=== PATIENT | female | born 1990 | race Caucasian/White ===

== ENCOUNTER 2017-08-17 12:38 | Inpatient (IN) | payer OTHER ==
[2017-08-17 13:15] VITALS: BMI 22.6
--- NOTE | 2017-08-17 18:24 | HP ---
COWS - Scale Resting Pulse: 0= OR 80 or Below Sweatin=Flushed/Facial Moisture Restless Observation: 1= Difficult to Sit Still Pupil Size: 1= Pupils >than Normal Bone or Joint Aches: 1= Mild Discomfort Runny Nose/ Eye Tearin= Runny Nose/Eyes GI Upset > 30mins: 2= Nausea/Diarrhea Tremor Observation: 1= Tremor [place], Not Seen Yawning Observation: 2= >3x During Session Anxiety or Irritability: 2=Irritable/Anxious Goose Flesh Skin: 3=Piloerection COWS Score: 17 Admission [facility] Chief Complaint: opioid withdrawal symptoms Allergies/Adverse Reactions: Allergies Allergy/AdvReac Type Severity Reaction Status Date / Time No Known Allergies Allergy Verified 08/17/17 16:38 History of Present Illness: 26 yo female with 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 PMHX: Hep C, bipolar, schizophrenia, depression and anxiety, Denies suicidal ideation . Currently denies auditory/ visual hallucinations, reports when she uses cocaine has auditory and visual hallucinations. Denies hx of suicide attempts. Denies hx of seizures or blackouts. Denies any period of sobriety. Exam Limitations: No Limitations - Ebola screening Have you traveled outside of the country in the last 21 days: No Have you had contact with anyone from an Ebola affected area: No Have you been sick,other than usual withdrawal symptoms: No Do you have a fever: No - Review of Systems Constitutional: Chills, Diaphoresis, Loss of Appetite, Changes in sleep (no sleep x 5 days), Unintentional Wgt. Loss (20 lbs x 1 year) EENT: reports: Nose Congestion Respiratory: reports: No Symptoms reported Cardiac: reports: No Symptoms Reported GI: reports: No Symptoms Reported, Diarrhea, Nausea, Vomiting, Abdominal cramping : reports: No Symptoms Reported Musculoskeletal: reports: Back Pain, Joint Pain, Other (foot pain bilateral, left hand swelling denies any recent trauma) Integumentary: reports: Other (left hand swelling) Neuro: reports: Headache (09/15) Endocrine: reports: No Symptoms Reported Hematology: reports: No Symptoms Reported Psychiatric: reports: Judgement Intact, Orientated x3, Depressed Other Systems: Reviewed and Negative Patient History - Patient Medical History Hx Anemia: Yes Hx Asthma: No Hx Chronic Obstructive Pulmonary Disease (COPD): No Hx Cancer: No Hx Cardiac Disorders: No Hx Congestive Heart Failure: No Hx Hypertension: No Hx Hypercholesterolemia: No Hx Pacemaker: No HX Cerebrovascular Accident: No Hx Seizures: No Hx Dementia: No Hx Diabetes: No Hx Gastrointestinal Disorders: No Hx Liver Disease: Yes (Hep C) Hx Genitourinary Disorders: No Hx Sexually Transmitted Disorders: No Hx Renal Disease (ESRD): No Hx Thyroid Disease: No Hx Human Immunodeficiency Virus (HIV): No (last tested on week ago ) Hx Hepatitis C: Yes (no treatment ) Hx Depression: Yes Hx Suicide Attempt: No Hx Bipolar Disorder: Yes Hx Schizophrenia: Yes - Patient Surgical History Past Surgical History: No Hx Neurologic Surgery: No Hx Cataract Extraction: No Hx Cardiac Surgery: No Hx Lung Surgery: No Hx Breast Surgery: No Hx Breast Biopsy: No Hx Abdominal Surgery: No Hx Appendectomy: No Hx Cholecystectomy: No Hx Genitourinary Surgery: No Hx Section: No Hx Orthopedic Surgery: No Anesthesia Reaction: No - PPD History Previous Implant?: Yes Documented Results: Negative w/o proof Implanted On Prior R Admission?: No PPD to be Administered?: Yes - Reproductive History Patient is a Female of Child Bearing Age (11 -55 yrs old): Yes Last Menstrual Period: 11/17/16 (hx irregular menses ) Patient : No - Smoking Cessation Smoking history: Current every day smoker Have you smoked in the past 12 months: Yes Aproximately how many cigarettes per day: 7 Hx Chewing Tobacco Use: No Initiated information on smoking cessation: Yes 'Breaking Loose' booklet given: 08/17/17 - Substance & Tx. History Hx Alcohol Use: Yes Hx Substance Use: Yes Substance Use Type: Cocaine, Heroin Hx Substance Use Treatment: No - Substances Abused Heroin Route: Injection Frequency: Daily Amount used: 20bags Age of first use: 25 Date of Last Use: 08/16/17 Cocaine Route: Injection Frequency: Daily Amount used: 1gm Age of first use: 25 Date of Last Use: 08/16/17 Family Disease History - Family Disease History Family History: Unable to Obtain Admission Physical Exam BHS - Vital Signs Vital Signs: Vital Signs - 24 hr 08/17/17 13:09 Temperature 97.2 F L Pulse Rate 80 Respiratory 20 Rate Blood Pressure 113/61 - Physical General Appearance: Yes: Disheveled, Moderate Distress, Thin, Sweating, Anxious HEENTM: Yes: EOMI, Hearing grossly Normal, Normal ENT Inspection, Normocephalic , Normal Voice, JIGAR, Pharynx Normal, Tm's normal, Rhinorrhea Respiratory: Yes: Chest Non-Tender, Lungs Clear, Normal Breath Sounds, No Respiratory Distress, No Accessory Muscle Use Neck: Yes: No masses,lesions,Nodules, Trachea in good position Breast: Yes: Breast Exam Deferred Cardiology: Yes: Regular Rhythm, Regular Rate Abdominal: Yes: Normal Bowel Sounds, Non Tender, Flat, Soft Genitourinary: Yes: Within Normal Limits Back: Yes: Normal Inspection Musculoskeletal: Yes: full range of Motion, Gait Steady, Pelvis Stable, Back pain Extremities: Yes: Normal Capillary Refill, Normal Inspection, Normal Range of Motion, Non-Tender 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, Fully Oriented, Alert, Motor Strength 5/5 Integumentary: Yes: Warm, Erythema (left hand), Diaphoresis, Track [place] (left hand ( +cellulitis) and forearms, neck (R)), Other (left hand swelling) Lymphatic: Yes: Within Normal Limits - Diagnostic (1) Cocaine dependence Current Visit: Yes Status: Acute Qualifiers: Substance use status: uncomplicated Qualified Code(s): F14.20 - Cocaine dependence, uncomplicated (2) Opioid dependence with withdrawal Current Visit: Yes Status: Acute (3) IV drug user Current Visit: Yes Status: Acute (4) Cellulitis of hand, left Current Visit: Yes Status: Acute (5) Weight decrease Current Visit: Yes Status: Acute (6) Anemia Current Visit: Yes Status: Chronic Qualifiers: Anemia type: unspecified type Qualified Code(s): D64.9 - Anemia, unspecified (7) Psychiatric disorder Current Visit: Yes Status: Suspected (8) Hepatitis C Current Visit: Yes Status: Chronic Qualifiers: Viral hepatitis chronicity: unspecified Hepatic coma status: without hepatic coma Qualified Code(s): B19.20 - Unspecified viral hepatitis C without hepatic coma Cleared for Admission S - Detox or Rehab [facility] Level of Care: Medically Managed Detox Regimen/Protocol: Methadone [facility] Breath Alcohol Content Breath Alcohol Content: 0 Urine Pregancy Test - Result Urine Test Results: Negative- NO Line Present Urine Drug Screen - Results Drug Screen Negative: No Urine Drug Screen Results: THC-Marijuana, JORDAN-Cocaine, OPI-Opiates, OXY- Oxycodone
[2017-08-17] MEDS ORDERED: IBUPROFEN 400 MG TABLET (FP) PO PRN (18:43)
[2017-08-17] MEDS ORDERED: METHADONE HCL 10 MG TABLET (FOR DETOX USE ONLY) PO ONE ×2 (18:43→23:00)
[2017-08-17] MEDS ORDERED: MENTHOL/PHENOL 1 EACH UD MM PRN (18:43)
[2017-08-17] MEDS ORDERED: MAGNESIUM CITRATE 300 ML BOTTLE PO PRN (18:43)
[2017-08-17] MEDS ORDERED: LOPERAMIDE HCL 2 MG CAPSULE PO PRN (18:43)
[2017-08-17] MEDS ORDERED: ACETAMINOPHEN 325 MG TABLET (FP) PO PRN (18:43)
[2017-08-17] MEDS ORDERED: MAGNESIUM HYDROX 2400MG/30ML ORAL SUSPENSION 30 ML CUP PO PRN (18:43)
[2017-08-17] MEDS ORDERED: MAG HYDROX/AL HYDROX/SIMETH 30 ML UNIT-DOSE CUP PO PRN (18:43)
[2017-08-17] MEDS ORDERED: NICOTINE POLACRILEX 2 MG GUM BC PRN (18:43)
[2017-08-17] MEDS ORDERED: hydrOXYzine PAMOATE 50 MG CAPSULE (FP) PO PRN (18:43)
[2017-08-17] MEDS ORDERED: guaiFENesin/D-METHORPHAN HB 10 ML UNIT-DOSE CUPS PO PRN (18:43)
[2017-08-17] MEDS ORDERED: P-EPHED 60MG/TRIPROLIDI 2.5MG TABLET PO PRN (18:43)
[2017-08-17] MEDS: diazePAM 5 MG TABLET PO PRN (20:35)
[2017-08-17] MEDS: CEPHALEXIN MONOHYDRATE 500 MG CAPSULE (UD) PO SCH ×2 (20:36→23:19)
[2017-08-17] MEDS ORDERED: MELATONIN 5 MG TABLETS PO PRN (22:00)
[2017-08-17] MEDS: THIAMINE HCL 100 MG TABLET (FP) PO SCH (23:19)
[2017-08-17] MEDS: BACITRACIN 15 GM TUBE TOPICAL OINTMENT TP SCH (23:22)
[2017-08-18 02:43] LABS: URINE APPEARANCE SLCLOUDY; URINE BILIRUBIN NEGATIVE (<2.0 mg/dL); URINE COLOR YELLOW; URINE GLUCOSE (UA) NEGATIVE (NEGATIVE); URINE KETONE NEGATIVE (NEGATIVE); URINE LEUK ESTERASE NEGATIVE (NEGATIVE); URINE NITRITE NEGATIVE (NEGATIVE); URINE PROTEIN NEGATIVE (NEGATIVE); URINE UROBILINOGEN 4.0 E.U/dl mg/dL (0.2-1.0)
[2017-08-18] MEDS: CEPHALEXIN MONOHYDRATE 500 MG CAPSULE (UD) PO SCH ×4 (06:56→23:01)
--- NOTE | 2017-08-18 08:59 | EKG ---
Test Reason : Blood Pressure : / mmHG Vent. Rate : 086 BPM Atrial Rate : 086 BPM P-R Int : 112 ms QRS Dur : 068 ms QT Int : 364 ms P-R-T Axes : 052 046 045 degrees QTc Int : 435 ms NORMAL SINUS RHYTHM NORMAL ECG NO PREVIOUS ECGS AVAILABLE Confirmed by MATTY COCHRAN MD ([id number]) on 08/18/2017 8:58:53 AM Referred By: Confirmed By:MATTY COCHRAN MD
[2017-08-18] MEDS ORDERED: BACITRACIN 0.9 GM PACKET ONE (09:50)
[2017-08-18] MEDS ORDERED: METHADONE HCL 10 MG TABLET (FOR DETOX USE ONLY) PO ONE (10:00)
--- NOTE | 2017-08-18 10:17 | PN ---
[facility] CIWA - CIWA Score Nausea/Vomitin Muscle Tremors: 3 Anxiety: 3 Agitation: 2 Paroxysmal Sweats: 1-Minimal Palms Moist Orientation: 0-Oriented Tacttile Disturbances: 1-Very Mild Itch/Numbness Auditory Disturbances: 1-Very Mild Visual Disturbances: 0-None Headache: 2-Mild CIWA-Ar Total Score: 16 [facility]HS COWS - Scale Resting Pulse: 0= ID 80 or Below Sweatin= Chills/Flushing Restless Observation: 3= Extraneous Movement Pupil Size: 1= Pupils >than Normal Bone or Joint Aches: 2= Severe Diffuse Aches Runny Nose/ Eye Tearin= Runny Nose/Eyes GI Upset > 30mins: 2= Nausea/Diarrhea Tremor Observation of Outstretched Hands: 2= Slight Tremor Visible Yawning Observation: 1= 1-2x During Session Anxiety or Irritability: 2=Irritable/Anxious Goose Flesh Skin: 0=Smooth Skin COWS Score: 16 [facility] Progress Note (SOAP) Subjective: alert,irritable,anxious,interrupted sleep,tremor,pain in the body and back Objective: 08/18/17 10:15 Vital Signs Temperature 98.8 F 08/18/17 09:59 Pulse Rate 71 08/18/17 09:59 Respiratory Rate 18 08/18/17 09:59 Blood Pressure 118/54 08/18/17 09:59 O2 Sat by Pulse Oximetry (%) ekg nsr,normal ecg qt 364/435 labs pending Assessment: 08/18/17 10:16 withdrawal symptom Plan: continue detox
[2017-08-18] MEDS ORDERED: CYCLOBENZAPRINE HCL 10 MG TABLET (FP) PO PRN (10:18)
[2017-08-18] MEDS: PRENATAL VITAMINS W/ FOLIC ACID TABLET (FP) PO SCH (10:55)
[2017-08-18] MEDS: NICOTINE 14 MG/24 HOURS TOPICAL PATCH TD SCH (10:56)
[2017-08-18] MEDS: diazePAM 5 MG TABLET PO PRN (10:56)
[2017-08-18] MEDS: BACITRACIN 15 GM TUBE TOPICAL OINTMENT TP SCH ×2 (10:57→23:01)
--- NOTE | 2017-08-18 13:56 | CONSULT ---
[facility] Psychiatric Consult - Data Date of interview: 08/18/17 Identifying data: Milker Machine approached patient for psychiatric consultation. Pt refused. Stated, " I don't want to speak to you." Nursing staff informed.
[2017-08-18] MEDS: THIAMINE HCL 100 MG TABLET (FP) PO SCH (23:00)
[2017-08-18] MEDS: cloNIDine HCL 0.1 MG TABLET PO SCH (23:01)
[2017-08-19 06:25] VITALS: TEMP 98.2
[2017-08-19] MEDS: CEPHALEXIN MONOHYDRATE 500 MG CAPSULE (UD) PO SCH (06:58)
[2017-08-19 09:33] VITALS: BP 104/62; PULSE 77
[2017-08-19] MEDS ORDERED: BACITRACIN 0.9 GM PACKET ONE (09:33)
[2017-08-19] MEDS ORDERED: METHADONE HCL 5 MG TABLET (FOR DETOX USE ONLY) PO ONE (10:00)
[2017-08-19] MEDS: BACITRACIN 15 GM TUBE TOPICAL OINTMENT TP SCH (10:35)
[2017-08-19] MEDS: cloNIDine HCL 0.1 MG TABLET PO SCH (10:36)
[2017-08-19] MEDS: NICOTINE 14 MG/24 HOURS TOPICAL PATCH TD SCH (10:36)
[2017-08-19] MEDS: PRENATAL VITAMINS W/ FOLIC ACID TABLET (FP) PO SCH (10:36)
--- NOTE | 2017-08-19 12:03 | PN ---
[facility] Progress Note Note: Pt noted to come out of her room dressed and attempting to put on her shoes When asked by RN Uzma, she stated "I am getting out of here, this s...t they giving me is not doing nothing", states she does a lot of fentanyl on street, so meds not helping. Not receptive to this provider talking to her, she put on shoe and walked off unit. Security contacted by RN Seen earlier by provider in room prior to this episode when she reluctantly answered questions asked. She denied any complaint then stating "i just want to sleep" No respiratory nor acute distress noted at this time.
--- NOTE | 2017-08-19 12:07 | DS ---
[facility] Detox Discharge Summary Admission Date: 08/17/17 Discharge Date: 08/19/17 - History Additional Comments: pt left AMA See progress note - Physical Exam Results Vital Signs: Vital Signs Temperature 98.2 F 08/19/17 09:33 Pulse Rate 77 08/19/17 09:33 Respiratory Rate 18 08/19/17 09:33 Blood Pressure 104/62 08/19/17 09:33 O2 Sat by Pulse Oximetry (%) - Medication Discharge Medications: Ambulatory Orders NK [No Known Home Medication] 08/17/17 - Diagnosis (1) Opioid dependence with withdrawal Current Visit: Yes Status: Acute (2) Cellulitis of hand, left Current Visit: Yes Status: Acute (3) Cocaine dependence Current Visit: Yes Status: Acute Qualifiers: Substance use status: uncomplicated Qualified Code(s): F14.20 - Cocaine dependence, uncomplicated (4) IV drug user Current Visit: Yes Status: Acute - AMA Did Patient Leave Against Medical Advice: Yes
[2017-08-20] MEDS ORDERED: METHADONE HCL 5 MG TABLET (FOR DETOX USE ONLY) PO ONE (10:00)
[2017-08-21] MEDS ORDERED: METHADONE HCL 10 MG TABLET (FOR DETOX USE ONLY) PO ONE (10:00)
[2017-08-22] MEDS ORDERED: METHADONE HCL 5 MG TABLET (FOR DETOX USE ONLY) PO ONE (06:00)
== END 2017-08-19 10:42 | disposition left against medical advice (07) | DRG 770 ==
LOC: YASAS 12:38 → Y6N 17:00
PROVIDERS: ADMIT Surgery; ATTEND Surgery
PROC: HZ2ZZZZ Detoxification Services for Substance Abuse Treatment (ICD-10-PCS; principal; 2017-08-17)
DX: F11.23 Opioid dependence with withdrawal (principal); F14.10 Cocaine abuse, uncomplicated; F31.9 Bipolar disorder, unspecified; F20.9 Schizophrenia, unspecified; F99 Mental disorder, not otherwise specified; L03.114 Cellulitis of left upper limb; D64.9 Anemia, unspecified; B18.2 Chronic viral hepatitis C; R63.4 Abnormal weight loss; Z68.22 Body mass index [BMI] 22.0-22.9, adult; Z59.0 Homelessness
CPT/HCPCS: 81003; 93005; 93010; J0735